=== PATIENT | male | born 1975 | race Caucasian/White ===

== ENCOUNTER → 2020-06-07 | Outpatient (CLI) | payer OTHER ==
[~2020-06-07] MED LIST: TOBRADEX 0.1%-0.5 ML OPH
== END | disposition home or self-care (01) ==
LOC: COVID19 09:32
PROVIDERS: ATTEND Student in an Organized Health Care Education/Training Program
DX: U07.1 COVID-19 (principal)

== ENCOUNTER 2025-05-18 13:10 | Emergency (ER) | payer OTHER ==
[~2025-05-18] VITALS: Ht 185.4 cm; Wt 136.1 kg
[2025-05-18] MEDS ORDERED: ASPIRIN, CHEWABLE 81 MG TAB PO ONE (13:30)
[2025-05-18] MEDS ORDERED: HEPARIN SODIUM 5,000 UNIT/ML VIAL IV ONE (13:30)
[2025-05-18] MEDS ORDERED: Ondansetron Hydrochloride 4 MG/2 ML VIAL IV ONE (13:30)
[2025-05-18] MEDS ORDERED: TICAGRELOR 90 MG TABLET PO ONE (13:40)
[2025-05-18 14:02] LABS: BASO # 0.1 10*3/uL (0.0-0.1); BASO % 0.5 % (0.0-1.0); EOS # 0.1 10*3/uL (0.0-0.4); EOS % 0.9 % (1.0-4.0); MEAN CELL VOLUME 88.0 fl (80.0-94.0); MEAN CORPUSCULAR HGB 30.5 pg (27.0-31.0); MEAN PLATELET VOLUME 9.2 fl (9.6-12.3); MONO # 0.5 10*3/uL (0.1-1.0); MONO % 3.9 % (3.0-9.0); NEUT # 10.4 10*3/uL (2.3-7.9); NEUT % 79.9 % (47.0-73.0); NUCLEATED RED BLOOD CELL 0.0 % (0.0-0.0); NUCLEATED RED BLOOD CELL 0.0 10*3/uL (0.0-0.0); PLATELET COUNT AUTOMATED 203 10*3/uL (130-400); RED CELL DISTRI WIDTH 12.1 % (0-14.5)
[2025-05-18 14:18] LABS: BUN 11 mg/dl (9-23); CPK 83 U/L (34-171)
[2025-05-18 14:36] LABS: ACT PARTIAL THROMBO TIME 92.6 SECONDS (20.0-32.1)
== END 2025-05-18 14:34 | disposition short-term general hospital (02) ==
LOC: ED 13:10
PROVIDERS: Emergency Medicine
DX: I21.3 ST elevation (STEMI) myocardial infarction of unspecified site (principal)